=== PATIENT | male | born 1995 | race Caucasian/White ===

== ENCOUNTER 2016-06-03 23:09 | Emergency (ER) | payer MEDICAID ==
--- NOTE | ~2016-06-03 | EKG ---
PATIENT: CHINA ROBERTS UNIT #: [id number] Ventricular Rate: 95 BPM Atrial Rate: 95 BPM P-R Interval: 158 ms QRS Duration: 90 ms Q-T Interval: 348 ms QTC Calculation(Bezet): 437 ms P Otway: 53 degrees Calculated R Otway: 67 degrees Calculated T Otway: 65 degrees Diagnosis Line: Normal sinus rhythm Diagnosis Line: Normal ECG Diagnosis Line: No previous ECGs available Diagnosis Line: Confirmed by RENUKA MCCORMACK MD ([id number]) on Diagnosis Line: 06/04/2016 7:19:21 AM INTERPRETING MD: GIANNA
--- NOTE | ~2016-06-03 | CT71 ---
[facility] A Service [facility] RADIOLOGY TEXT RESULTS PATIENT: CHINA ROBERTS LOCATION: [facility] : [birth year] UNIT #: [id number] AGE: [address]: Sylvester Rodriguez DO SEX: M ORDER DR: [id number] [facility] [address]. [place], [place] [address] [id number] E MR#: [id number] Acc #: [id number] NAME: CHINA ROBERTS : 1995 SEX: M STUDY DATE/TIME: 06/04/2016 0:05 UNIT: EZEKIEL ROOM: STUDY DESCRIPTION: CT Head Wo Contrast Attending Physician: Sylvester Rodriguez D.O. Ordering Physician: Sylvester Rodriguez D.O. MEDICAL IMAGING REPORT This report is preliminary unless electronic signature is present EXAM CT scan of the head without contrast HISTORY Decreased level of consciousness. Confusion. Jerking. Drug overdose tonight. TECHNIQUE Axial noncontrast images were obtained from the skull base to the vertex. This CT exam was performed with one or more of the following radiation dose reduction techniques: automatic exposure control, adjustment of mA and/or kV according to patient size, and iterative reconstruction. FINDINGS Ventricular size and configuration are normal. There is no evidence of acute infarct or hemorrhage. There are no extraaxial fluid collections. No mass lesion or mass effect is seen. There are no skull fractures. IMPRESSION Normal noncontrast head CT. Dictated by... Rodrigo Falcon M.D. THIS IS AN ELECTRONICALLY VERIFIED REPORT Rodrigo aFlcon M.D. at 06/04/2016 2:15 PM FEL/pcl TD: 06/04/2016 01:08 JOB #: [id number] [facility] A Service [facility] RADIOLOGY TEXT RESULTS PATIENT: CHINA ROBERTS LOCATION: [facility] : [birth year] UNIT #: [id number] AGE: [address]: Sylvester Rodriguez DO SEX: M ORDER DR: MEDICAL IMAGING REPORT Page 1 of 1 COPY
--- NOTE | ~2016-06-03 | CT2 ---
[facility] A Service of [facility] RADIOLOGY TEXT RESULTS PATIENT: CHINA ROBERTS LOCATION: [facility] : [birth year] UNIT #: [id number] AGE: [address]: Sylvester Rodriguez DO SEX: M ORDER DR: [id number] [facility] [address] [place], [place] [address] [id number] E MR#: [id number] Acc #: [id number] NAME: CHINA ROBERTS : 1995 SEX: M STUDY DATE/TIME: 06/04/2016 0:13 UNIT: EZEKIEL ROOM: STUDY DESCRIPTION: CT Abd and Pelv W Cont Attending Physician: Sylvester Rodriguez D.O. Ordering Physician: Sylvester Rodriguez D.O. Primary Care Physician: Primary Care Physician No MEDICAL IMAGING REPORT This report is preliminary unless electronic signature is present EXAM CT abdomen and pelvis without contrast INDICATIONS Elevated liver function test and upper abdomen pain tonight. COMPARISON None. TECHNIQUE Patient was given 100 cc of Isovue-370 and axial 5 mm were obtained through the abdomen and pelvis. This CT exam was performed with one or more of the following radiation dose reduction techniques: automatic exposure control, adjustment of mA and/or kV according to patient size, and iterative reconstruction. FINDINGS The lung bases are clear. The liver, gallbladder, pancreas, adrenal glands and kidneys are normal. The spleen is slightly prominent measuring 14.6 cm in maximal AP dimension. The aorta is normal in size. There is no adenopathy. The bowel appears normal. The cecum lies in the central pelvis. I cannot identify the appendix but I do not see evidence of appendicitis. The bladder is normal. The prostate gland is normal. IMPRESSION 1. The study appears normal, except for mild prominence of the spleen which measures about 14.6 cm in maximum AP dimension. The liver appears normal. I do not see any evidence of appendicitis. [facility] A Service of [facility] RADIOLOGY TEXT RESULTS PATIENT: CHINA ROBERTS LOCATION: [facility] : [birth year] UNIT #: [id number] AGE: [address]: Sylvester Rodriguez DO SEX: M ORDER DR: Dictated by... Rodrigo Falcon M.D. THIS IS AN ELECTRONICALLY VERIFIED REPORT Rodrigo Falcon M.D. at 06/04/2016 2:15 PM FEL/pcl TD: 06/04/2016 01:10 JOB #: [id number] MEDICAL IMAGING REPORT Page 1 of 1 COPY
[2016-06-03 22:05] LABS: BASOPHIL% 0.4 % (0-2.5); EOSINOPHIL% 0.2 % (0.0-7.0); HEMATOCRIT 44.5 % (38.0-50.0); HEMOGLOBIN 15.1 gm/dL (13.0-16.0); LYMPHOCYTE% 8.7 % (17.0-45.0); MEAN CELL VOLUME 90.4 FL (83-96); MEAN CORPUSCULAR HEMOGLOBIN 30.8 PG (28-34); MEAN CORPUSCULAR HGB CONC 34.1 g/dL (30-36); MEAN PLATELET VOLUME 7.1 FL (6.5-11.5); MONOCYTE# 0.8 X10e3 (0-1.0); MONOCYTE% 7.4 % (3.0-12.0); NEUTROPHIL# 9.4 X10e3 (1.5-7.1); NEUTROPHIL% 83.3 % (40-75); PLATELET COUNT 257 X10e3 (140-420); RED BLOOD COUNT 4.92 X10e (3.90-5.60); RED CELL DISTRIBUTION WIDTH 13.3 % (11.0-15.5); WHITE BLOOD COUNT 11.2 X10e3 (4.0-10.5)
[2016-06-03 22:06] LABS: DIFF IND NO
[2016-06-03 22:20] LABS: POC - CKMB 4.3 ng/mL (0.0-7.9); POC - TROPONIN <0.05 ng/mL (<=0.05)
[2016-06-03 22:41] LABS: ALBUMIN SERUM 4.7 g/dL (3.5-5.0); ALKALINE PHOSPHATASE 67 U/L (32-92); ALT (SGPT) 244 U/L (10-40); AST (SGOT) 132 U/L (10-42); BILIRUBIN, DIRECT 0.4 mg/dL (0.0-0.2); BILIRUBIN,INDIRECT 1.8 mg/dL (0.0-0.9); BILIRUBIN,TOTAL 2.2 mg/dL (0.2-2.0); BLOOD UREA NITROGEN 18 mg/dL (9-23); CALCIUM SERUM 9.8 mg/dL (8.4-10.2); CARBON DIOXIDE 22 mmol/L (22-31); CHLORIDE 97 mmol/L (100-111); CREATININE SERUM 0.8 mg/dL (0.6-1.4); GLOM FILT RATE Estimated 126.9 mL/min (>60); GLUCOSE FASTING 54 mg/dL (70-110); POTASSIUM 3.7 mmol/L (3.5-5.1); PROTEIN TOTAL SERUM 8.7 g/dL (6.0-8.3); SALICYLATE <4.0 mg/dL; SODIUM 136 mmol/L (135-145)
[2016-06-03 22:42] LABS: ACETAMINOPHEN <10 ug/mL; ALCOHOL BLOOD <5 mg/dL (0)
[2016-06-04 01:43] LABS: POC - TROPONIN <0.05 ng/mL (<=0.05)
[2016-06-04 03:27] LABS: URINE SOURCE CLEAN CATCH
[2016-06-04 03:32] LABS: URINE APPEARANCE CLEAR; URINE BILIRUBIN NEG (NEG); URINE BLOOD 3+ (NEG); URINE COLOR DK YELLOW; URINE GLUCOSE NEG (NEG); URINE KETONE 3+ (NEG); URINE LEUKOCYTE ESTERASE NEG (NEG); URINE NITRATE NEG (NEG); URINE PROTEIN TRACE (NEG); URINE SPECIFIC GRAVITY 1.051 (1.003-1.035)
[2016-06-04 03:35] LABS: URBCS1 AUWI 25-50 /[HPF] (0-2); URINE BACTERIA AUWI NEG (NEGATIVE); URINE SQUAMOUS EPITHELIAL CELL NONE SEEN /[HPF]; UWBCS1 AUWI 0-2 (0-5)
[2016-06-04 03:39] LABS: CULTURE INDICATED? NO
[2016-06-04 03:43] LABS: AMPHETAMINE POS (NEG); BARBITURATES NEG (NEG); BENZODIAZEPINES NEG (NEG); COCAINE NEG (NEG); MARIJUANA POS (NEG); OPIATES POS (NEG); TRICYCLIC ANTIDEPRESSANTS NEG (NEG); U METHADONE NEG (NEG)
== END 2016-06-04 04:05 | disposition home or self-care (01) ==
LOC: CED 23:09
PROVIDERS: Emergency Medicine
DX: T40.3X1A Poisoning by methadone, accidental (unintentional), initial encounter (principal); T41.291A Poisoning by other general anesthetics, accidental (unintentional), initial encounter; F11.10 Opioid abuse, uncomplicated; Z88.0 Allergy status to penicillin; Z91.040 Latex allergy status
CPT/HCPCS: 36415; 70450; 74177; 80048; 80076; 80307; 81003; 82553; 84484; 85025; 93005; 96360; 96361; 96372; 99284; G0480; J3486; Q9967